=== PATIENT | male | born 1945 | race Caucasian/White ===

== ENCOUNTER 2020-08-02 15:35 | Inpatient (IN) | payer MEDICARE, OTHER, SELFPAY ==
[2020-08-02] VITALS (11 sets, daily range): BP systolic 146–194; BP diastolic 84–110; PULSE 74–79; RESP 14–18; TEMP 36.3–37.9; O2SAT 91–95; BMI 23.0
--- NOTE | 2020-08-02 15:53 | XR_ITS ---
WS: [id number] XR hip RT 2-3V wo/w pel* [id number] REASON FOR EXAM: pain FINDINGS: Bony demineralization. Degenerative changes in the right hip. Nondisplaced subcapital fracture of the junction of the femoral head and neck junction. No other bony fragments noted. XR/XR hip RT 2-3V wo/w pel* [id number] IMPRESSION: Right hip fracture as above.
--- NOTE | 2020-08-02 15:55 | W.ED.FALL ---
HPI - Fall General: Chief Complaint: Fall Stated Complaint: FALL R LEG PAIN Time Seen by Provider: 08/02/20 15:42 History of Present Illness: HPI Narrative: 74-year-old male presents to the emergency room with complaint of right hip pain. He was working on [employer] and got caught up in some tools and hoses when he went to stand up and stumbled landed on his right side. His only complaint is his right hip. Did not strike his head did not lose consciousness. He is not on any blood thinners. He does take aspirin daily. complaint: fall Onset (ago): minute(s) Fall from: standing Place fall occurred: home Loss of consciousness: None Prolonged down time: no Context: tripped/slipped Location of injury: other (Right hip) Quality: aching Associated symptoms-after fall: Denies abdominal pain, chest pain, confusion, difficulty walking, headache(s), hematuria, lightheadedness, neck pain, numbness, short of breath, vertigo or weakness Review of Systems Const: Denies: fever(s), chills, body aches, change in appetite, fatigue or malaise ENMT: Denies: throat pain, ear or mastoid pain, nasal discharge or nasal congestion Card: Denies: chest pain or lightheadedness Resp: Denies: dyspnea, productive cough or non-productive cough GI: Denies: abdominal pain : Denies: hematuria Musc: Denies: neck pain Skin/Breast: Denies: rash or pruritus Neuro: Denies: headache(s), difficulty walking, vertigo or confusion Physical Exam Const: COMMON NORMALS: no acute distress GENERAL APPEARANCE: cooperative and comfortable ORIENTATION/CONSCIOUSNESS: Yes awake, Yes oriented to person, Yes oriented to place and Yes oriented to time HENMT: COMMON NORMALS: normocephalic, atraumatic and hearing grossly normal bilaterally HEAD & SCALP: normocephalic and atraumatic Neck/C-Spine: COMMON NORMALS: no JVD Resp: COMMON NORMALS: normal respiratory effort, No retractions, No use of accessory muscles and clear to auscultation bilaterally AUSCULTATION: clear to auscultation bilaterally Cardio: COMMON NORMALS: no JVD, regular rate, regular rhythm and No murmurs present (Cardio) RATE: regular rate RHYTHM: regular rhythm GI: COMMON NORMALS: Soft to palpation and No hepatosplenomegaly present AUSCULTATION: Yes normoactive bowel sounds PALPATION: Yes Soft to palpation, No Tenderness to palpation present (GI), No Guarding due to palpation present (GI) and Yes No hepatosplenomegaly present Extremity: COMMON NORMALS: normal to inspection, capillary refill normal, no clubbing, cyanosis or edema, no calf tenderness and no pedal edema Neuro: SENSORIUM/ORIENTATION: Yes oriented to person, Yes oriented to place and Yes oriented to time Skin: COMMON NORMALS: no rashes or lesions noted GENERAL SKIN EXAM: no rashes or lesions noted Course Vital Signs: Vital signs: Vital Signs Temperature 97.3 F L 08/02/20 15:39 Pulse Rate 75 08/02/20 15:39 Respiratory Rate 18 08/02/20 16:38 Blood Pressure 192/100 08/02/20 15:39 Pulse Oximetry 95 08/02/20 15:39 MDM - Fall MDM Narrative: Medical decision making narrative: Reviewed findings with the patient. Will admit for surgery. Admit to hospitalist remainder of preoperative labs ordered talk to Dr. Gupta and Dr. Marley for consult plan is to take to the OR in the morning. Discharge Plan Discharge Patient Disposition: Admitted As Inpatient Admit Provider: Kevin Cazares Clinical Impression: Subcapital fracture of right hip Condition: Stable Coding Level of Care Code ED Pattern Weaver for Chg Fwd Exam Comprehensive
--- NOTE | 2020-08-02 16:17 | XR_ITS ---
WS: [id number] XR chest 1V portable [id number] REASON FOR EXAM: dyspnea/cough FINDINGS: The chest is unchanged compared to previous examination of 11/10/2013. Mild tortuosity the thoracic aorta without aneurysmal dilatation. Normal heart size. Calcified granulomatous changes in both hemithoraces. No active pulmonary parenchymal or pleural dise ase noted. Focal lateral eventration of the left hemidiaphragm. Mild changes of degenerative spondylosis in the mid and lower thoracic spine. XR/XR chest 1V portable [id number] IMPRESSION: No acute chest abnormality.
[2020-08-02] MEDS: morphine 4 mg/mL SDV 1 mL IVP ×2 (16:38→18:22)
[2020-08-02] MEDS: ondansetron 2 mg/ML SDV 2 mL 4 MG IVP (16:38)
--- NOTE | 2020-08-02 16:48 | ECG_ITS ---
[facility] Test Date: 2020-08-02 Pat Name: Carlo Robert Department: Room: 268 Gender: Male Cert Occupational Therapy Asst: : 1945 Requested By: Lee Biggs Order Number: [id number] Reading MD: DEBORA CABELLO Measurements Intervals [place] Rate: 82 P: 52 ID: [id number] QRS: -43 QRSD: 101 T: 51 QT: 380 QTc: 446 Interpretive Statements SINUS RHYTHM WITH OCCASIONAL SUPRAVENTRICULAR PREMATURE COMPLEXES LEFT AXIS DEVIATION [QRS AXIS < -30] No previous ECG available for comparison Electronically Signed On 08-02-2020 21:15:55 CDT by DEBORA CABELLO [id number]
[2020-08-02 16:54] LABS: Basophils % 0.6 %; Eosinophils # 0.2 10^3/uL (0.0-0.8); Eosinophils % 3.2 %; Hematocrit 49.3 % (42.0-52.0); Hemoglobin 16.3 g/dL (11.7-16.6); Lymphocytes % 13.5 %; Mean Corpuscular HGB Conc 33.1 g/dL (30.0-36.0); Mean Corpuscular Hemoglobin 28.7 pg (28.0-34.0); Mean Corpuscular Volume 86.9 fL (80-94); Mean Platelet Volume 9.4 fL (7.4-10.4); Monocytes # 0.5 10^3/uL (0.2-0.9); Monocytes % 7.2 %; Neutrophils # 5.41 10^3/uL (1.8-7.7); Neutrophils % 75.2 %; Nucleated Red Blood Cells % 0 %; Platelet Count 227 10^3/cmm (130-400); Red Blood Count 5.67 10^6/uL (4.1-5.3); Red Cell Distribution Width 13.3 % (12.1-15.1); White Blood Count 7.2 10^3/uL (4.0-10.0)
--- NOTE | 2020-08-02 17:09 | PC.CHAP ---
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 [x] Patient/Family/Request visit [] Outpatient visit [] Follow-up visit [] Physician referral [] Code/Alert [] Routine visit [] Staff referral [] Actively dying [] Patient sleeping [] Family support [] [] Out of room [] Palliative care [] [] Receiving care in room [] Pre-surgical visit [] Trauma [] Long length of stay [] ICU visit [x] Other: ER Relational/Emotional Strength [x] Patient feels connected with others/family/visitors/staff [] Distress [] Loneliness/isolation [] Abandonment Spirituality of Patient [x] Person of Keisha [x] Attends Religion of their Keisha [x] Believes in Prayer [x] Reads Bible or Christian materials [] There are Spiritual issues to be addressed Drywall Sander Interventions [x] Prayer [x] Active listening [x] Non-anxious presence [x] Spiritual/emotional support [x] Crisis/trauma care [] Spiritual counseling [] Bereavement support [] Provided bereavement packet [] Provided Bible/devotional materials [] Provided toy/stuffed animal, coloring book to patient or family member [] Provided Communion [] Anointing/[place] [] Salvation [x] Completed spiritual assessment [] Other: Impact on Illness or Injury [] Angry [] Fearful [] Anxious [] Often cries [] Exhaustion [] Unable to work [] Unable to attend religious [] Unable to walk/stand [] Unable to read [x] Unable to drive [] Unable to eat/drink [] Unable to sleep [] Unable to be with family [] Patient intubated [] Other: Summary Drywall Sander called to ED, request by patient. Patient fell and injured his hip and will have surgery tomorrow. He is calm and in no pain. Patients if also calm but a little tearful. she will not be allowed to see him until COVID test comes back. Drywall Sander will check on patient in the morning and throughout day tomorrow. Drywall Sander prayed with patient and patients , offering words of encouragement. Drywall Sander walked patients to her car. Time spent with patient 15 min
[2020-08-02 17:13] LABS: Alanine Aminotransferase 15 U/L (0-41); Albumin Level 4.8 g/dL (3.5-5.2); Alkaline Phosphatase 74 IU/L (40-130); Aspartate Amino Transferase 19 U/L (0-40); Blood Urea Nitrogen 12 mg/dL (8-23); Calcium 9.2 mg/dL (8.5-10.5); Carbon Dioxide 30 mmol/L (22-29); Chloride 98 mmol/L (98-107); Glucose 101 mg/dL (65-115); Osmolality Calculated 284 mOsm/kg (285-295); Sodium 137 mmol/L (136-145); Total Bilirubin 0.5 mg/dL (0.15-1.2); Total Protein 7.8 g/dL (6.6-8.7)
[2020-08-02 17:18] LABS: INR 1.07 (0.8-1.2); Partial Thromboplastin Time 30.1 SECONDS (23.9-36.7)
--- NOTE | 2020-08-02 17:34 | P.HP_ITS ---
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 Noted hypertensive initially, blood pressure as high as 194/110, responding to pain medication. He reports that prior to this has had no health problems, and was at baseline up until the accidental fall. Orthopedic surgeon was contacted from ER, and will be arranging for repair, possibly in the morning. Denies any symptoms of coronavirus. Review of Systems Const: Denies: fever(s), chills, body aches or malaise Eyes: Denies: change in vision or eye redness ENMT: Denies: throat pain, oral sores or ear or mastoid pain Card: Denies: chest pain, edema, pre-syncope or dyspnea on exertion Resp: Denies: dyspnea, productive cough, change in phlegm color or hemoptysis GI: Denies: abdominal pain, nausea, vomiting, diarrhea, constipation, hematochezia or melena : Denies: flank pain, difficulty urinating, urinary frequency or hematuria Musc: Denies: back pain, joint swelling or joint redness Skin/Breast: Denies: rash, sores or new lesions Neuro: Denies: headache(s), numbness in extremities, weakness in extremities, dizziness, confusion or seizure-like activity Endo: Denies: polyuria or polydipsia Marcello/Lymph: Denies: easy bleeding or purpura All/Imm: Denies: urticaria, throat swelling or tongue swelling Medications/Allergies Home Medications Medication Instructions Recorded Confirmed Last Taken Type acetaminophen [Tylenol] 325 mg PO QID PRN 08/02/20 08/02/20 Unknown History aspirin 325 - 650 mg PO Q6H PRN 08/02/20 08/02/20 Unknown History Allergies Allergy/AdvReac Type Severity Reaction Status Date / Time No Known Allergies Allergy Verified 08/02/20 15:42 PFSH Acute PFSH: Medical History (Updated 08/02/20 @ 17:38 by Kevin Cazares MD) No significant past medical history Surgical History (Updated 08/02/20 @ 17:36 by Kevin Cazares MD) History of appendectomy History of left knee replacement Family History (Updated 08/02/20 @ 17:37 by Kevin Cazares MD) Other No significant family history Social History (Updated 08/02/20 @ 17:38 by Kevin Cazares MD) Smoking and tobacco status: never smoked Alcohol intake: never Substance/Drug Use: never Household members: spouse Marital status: Current occupational status: retired Current occupation: [employer] Vitals/I&O/Wt Last Vital Signs Temp 97.3 F L 08/02/20 15:39 Pulse 75 08/02/20 17:28 Resp 18 08/02/20 17:28 BP 146/101 08/02/20 17:28 Pulse Ox 91 08/02/20 17:28 Weight last 48 hrs Weight 77.111 kg Physical Exam Const: COMMON NORMALS: no acute distress and patient oriented x3 HENMT: COMMON NORMALS: oropharynx normal Neck/C-Spine: COMMON NORMALS: no JVD Resp: COMMON NORMALS: normal respiratory effort and clear to auscultation bilaterally AUSCULTATION: clear to auscultation bilaterally Cardio: COMMON NORMALS: no JVD, regular rhythm, S1 normal heart sound present, S2 normal heart sound present and No murmurs present (Cardio) RHYTHM: regular rhythm HEART SOUNDS: S1 normal heart sound present and S2 normal heart sound present GI: COMMON NORMALS: Normal to inspection, nondistended, normoactive bowel sounds present, Soft to palpation and non-tender PALPATION: Yes Soft to palpation Extremity: COMMON NORMALS: no joint enlargement and no pedal edema OTHER: Right hip pain antalgic positioning, with pain. Neuro: COMMON NORMALS: patient oriented x3 and moves all extremities Skin: COMMON NORMALS: no rashes or lesions noted GENERAL SKIN EXAM: no rashes or lesions noted Data : 08/02/20 16:33 08/02/20 16:33 A&P Assessment and plan (1) Subcapital fracture of right hip: After mechanical fall. He has no significant past medical history. He is a never smoker. He is very active. 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 He walks unassisted, long distances, has no trouble walking on flat ground or taking stairs. He is at risk of surgery and anesthesia would be checked be average. Discussed with him. He states will be agreeable to proceed. Pending assessment by orthopedics. Tentative plan for repair possibly in the morning. EKG with sinus rhythm, PVC. Will request for NT proBNP due to age. COVID-19 PCR screening ordered. Status: Acute (2) Elevated blood pressure reading: As high as 194/110 at presentation. Responding to pain medication and suspect is pain related. He would like to hold off on initiating any treatments currently. We will monitor blood pressure. Treat pain. Reassess once he is closer to his baseline. Cardiac diet. Status: Acute Attestations Medical Necessity Statement*: Admission of over 2 midnights is going to be needed for assessment management of right hip fracture in this 74-year-old gentleman with possible undiagnosed hypertension. 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
[2020-08-02] MEDS: heparin 5,000 unit/mL INJ 1 mL 5000 UNIT SUBCUT (18:21)
[2020-08-02 18:24] LABS: NT Pro B Type Natriuretic Pept 233 pg/mL (0-450)
[2020-08-02] MEDS: morphine 4 mg/mL SDV 1 mL 2 MG IVP (20:55)
[2020-08-02 23:27] LABS: Bilirubin Urine Neg (Negative); Blood Urine 2+ (Negative); Glucose Urine UA Norm (Normal); Ketones Urine 1+ (Negative); Leukocyte Esterase Urine Negative (Negative); Nitrate Urine Negative (Negative); Protein Urine Neg (Negative); Urine Appearance Clear (CLEAR); Urine Color Yellow (Yellow); Urobilinogen Urine Norm (Negative); pH Urine 6.5 (5-7)
[2020-08-02 23:28] LABS: Add Urine Microscopic? YES; Bacteria Urine 1+ /hpf; Squamous Epithelial Cell Urine RARE /hpf (0-5); WBC Urine 0-4 /hpf (0-5)
[2020-08-02 23:29] LABS: Add Urine Culture? No
[2020-08-03] VITALS (28 sets, daily range): BP systolic 138–198; BP diastolic 72–116; PULSE 70–105; RESP 8–19; TEMP 37.3–38.3; O2SAT 88–100
--- NOTE | 2020-08-03 | XR_ITS ---
WS: [id number] XR hip RT 2-3V wo/w pel* [id number] REASON FOR EXAM: hip screws FINDINGS: Right hip nailing of subcapital fracture of the right hip. Surgical appliances and fracture fragments are in good position and alignment. XR/XR hip RT 2-3V wo/w pel* [id number] IMPRESSION: Right hip nailing as above.
--- NOTE | 2020-08-03 | SCC_ITS ---
Procedure Done: Closed reduction and percutaneous pinning right hip 101.2 seconds of fluoroscopic guidance, for a cumulative dose of 13.68 mGy, was provided to Dr. Marley by the radiology department. C-arm images of the right hip were saved for the patient's permanent record. [facility]OSPITALKeya
[2020-08-03] MEDS: D5-NS 0.45% + KCL 20 mEq 20 MEQ/1,000 ML BAG 75 MEQ IV (00:16)
[2020-08-03] MEDS: morphine 4 mg/mL SDV 1 mL IVP ×2 (00:17→04:08)
[2020-08-03 02:50] LABS: Basophils % 0.4 %; Eosinophils # 0.1 10^3/uL (0.0-0.8); Eosinophils % 1.7 %; Hematocrit 45.3 % (42.0-52.0); Hemoglobin 15.4 g/dL (11.7-16.6); Lymphocytes # 0.6 10^3/uL (0.8-4.8); Lymphocytes % 7.4 %; Mean Corpuscular Hemoglobin 29.4 pg (28.0-34.0); Mean Corpuscular Volume 86.6 fL (80-94); Mean Platelet Volume 9.3 fL (7.4-10.4); Monocytes # 0.4 10^3/uL (0.2-0.9); Monocytes % 5.1 %; Neutrophils # 6.83 10^3/uL (1.8-7.7); Neutrophils % 85.2 %; Nucleated Red Blood Cells % 0 %; Platelet Count 177 10^3/cmm (130-400); Red Blood Count 5.23 10^6/uL (4.1-5.3); Red Cell Distribution Width 13.5 % (12.1-15.1)
[2020-08-03 03:10] LABS: Anion Gap 13.8 (5-19); Blood Urea Nitrogen 15 mg/dL (8-23); Calcium 8.3 mg/dL (8.5-10.5); Carbon Dioxide 26 mmol/L (22-29); Chloride 99 mmol/L (98-107); Glucose 124 mg/dL (65-115); Osmolality Calculated 282 mOsm/kg (285-295); Potassium 3.8 mmol/L (3.5-5.1); Sodium 135 mmol/L (136-145)
[2020-08-03] MEDS: sodium chloride 0.9% 1,000 ML 30 ML IV (08:21)
--- NOTE | 2020-08-03 08:22 | PM.CONSULT ---
Providers/Reason For Consult Consulting Physican/Specialty*: Devante Marley MD Reason for Consult*: Right femoral neck fracture Attending Physician: Kevin Cazares Primary Care Provider: Raúl Briceno DO History of Present Illness History of Present Illness Carlo Robert is a 74 year old male who fell yesteray when he rapidly stood up, working on a 4 [address]. He alleges he lost his balance and denies any lightheadedness or loss of consciousness. He states he fell directly on his right hip with immediate pain. He denies any previous history of pain. He denies any other extremity discomfort Meds/Allergies Home Medications and Allergies Home Medications Medication Instructions Recorded Confirmed Last Taken Type acetaminophen [Tylenol] 325 mg PO QID PRN 08/02/20 08/02/20 Unknown History aspirin 325 - 650 mg PO Q6H PRN 08/02/20 08/02/20 Unknown History Allergies Allergy/AdvReac Type Severity Reaction Status Date / Time No Known Allergies Allergy Verified 08/02/20 15:42 Current Medications Current Medications Generic Name Dose Route Start Last Admin Trade Name Freq PRN Reason Stop Dose Admin Potassium Chloride/Dextrose/Sod Cl 20 meq in 1,000 mls @ 75 mls/hr 08/02/20 23:55 08/03/20 00:16 D5-Ns 0.45% + Kcl 20 Meq IV 75 mls/hr .[id number] SUKI Administration Sodium Chloride 1,000 mls @ 30 mls/hr 08/03/20 08:00 08/03/20 08:21 Sodium Chloride 0.9% IV 08/04/20 07:59 30 mls/hr .Q24H SUKI Administration Morphine Sulfate 4 mg 08/02/20 18:08 08/03/20 04:08 Morphine 4 Mg/Ml Sdv 1 Ml IVP 4 mg Q4H PRN Administration SEVERE PAIN PFSH Acute PFSH: Medical History (Updated 08/02/20 @ 17:38 by Kevin Cazares MD) No significant past medical history Surgical History (Updated 08/02/20 @ 17:36 by Kevin Cazares MD) History of appendectomy History of left knee replacement Family History (Updated 08/02/20 @ 17:37 by Kevin Cazares MD) Other No significant family history Social History (Updated 08/02/20 @ 17:38 by Kevin Cazares MD) Smoking and tobacco status: never smoked Alcohol intake: never Substance/Drug Use: never Household members: spouse Marital status: Current occupational status: retired Current occupation: [employer] Vitals/I&O/Wt Last Vital Signs Temp 99.5 F 08/03/20 08:21 Pulse 86 08/03/20 08:21 Resp 18 08/03/20 08:21 BP 173/92 08/03/20 08:21 Pulse Ox 93 08/03/20 08:21 08/02/20 08/03/20 08/03/20 22:59 06:59 14:59 Intake Total 120 / 120 Output Total 625 / 625 400 / 1025 Balance -625 / -625 -280 / -905 Weight last 48 hrs Weight 170 lb Physical Exam Narrative: EXAM NARRATIVE: The patient is a healthy appearing strong male who appears much younger than stated age. His right lower extremity is flexed on a pillow and slightly externally rotated. He has pain with motion of the right hip. The patient has a strong right dorsalis pedis pulse He will flex and extend his right toes and ankle He has no upper extremity or left lower extremity pain with palpation or motion Data Imaging^: Xray Ortho: My impression: Radiographs of the right hip are interpreted from our emergency room yesterday. The patient has an impacted minimally displaced fracture of the right femoral neck A&P Assessment and plan (1) Subcapital fracture of right hip: I discussed options at length with Mr. Robert. There is some slight displacement of the hip and I do feel that this would not do well with nonoperative treatment. I told him that with a significant loss of position this would be only salvageable with hip replacement in a functioning individual as himself. I think he is in good health and to be a reasonable candidate for pinning. I discussed risk unique to pinning of hip fractures including avascular necrosis nonunion and malunion. I discussed hardware that may later need to be root removed. I discussed risk of bleeding infection. Discussed unlikely anesthetic complications. I think with his high functional level with a nondisplaced fracture I would favor this as opposed to arthroplasty of the hip. He agreed to proceed. I see no obvious medical contraindications. We will proceed to surgery today. Status: Acute Coding Level of Care Code Acute Medical Office Receptionist Assistant for [facility] Fwd Diagnoses Subcapital fracture of right hip S72.011A
--- NOTE | 2020-08-03 09:19 | P.ANESASSM_ITS ---
Pre-Anesthetic Assessment Pre-Anesthetic Assessment: Height/Weight: Height 1.83 m Weight 77.111 kg Temp Pulse Resp BP Pulse Ox 99.5 F 86 18 173/92 93 08/03/20 08:21 08/03/20 08:21 08/03/20 08:21 08/03/20 08:21 08/03/20 08:21 Proposed Procedure: Operation Date: 08/03/20 15:25 Proposed Procedures p Hip Screw(Right) - Devante Marley MD Was Beta Shay taken within 24 hours: N/A Was Clonidine taken within 24 hours: N/A Last intake: Intake Last Liquid Date 08/02/20 Last Liquid Time 23:59 Last Solid Date 08/02/20 Last Solid Time 17:30 Social: Social History: No alcohol and No tobacco Exam: Pre-Anes Outpt Exam: alert, oriented x 3, clear to auscultation bilaterally and regular rate & rhythm Airway: Submandibular: WNL Cervical ROM: WNL MP: 2 Dentition: Full History/ROS: No significant history except as noted CV/HEM: CV/HEM: HTN Anesthetic Plan: ASA status: 2 Anesthesia: General Risk of > 500 ml blood loss (7ml/kg in children): No Meds/Allergies Current Medications: Current Medications Generic Name Dose Route Start Last Admin Trade Name Freq PRN Reason Stop Dose Admin Potassium Chloride /Dextrose/Sod Cl 20 meq in 1,000 m ls @ 75 mls/hr 08/02/20 23:55 08/03/20 00:16 D5-Ns 0.45% + Hans l 20 Meq IV 75 mls/hr .[id number] SUKI Administration Sodium Chloride 1,000 mls @ 30 ml s/hr 08/03/20 08:00 08/03/20 08:21 Sodium Chloride 0.9% IV 08/04/20 07:59 30 mls/hr .Q24H SUKI Administration Morphine Sulfate 4 mg 08/02/20 18:08 08/03/20 04:08 Morphine 4 Mg/Ml Sdv 1 Ml IVP 4 mg Q4H PRN Administration SEVERE PAIN PFSH Anesthesia PFSH: Medical History (Updated 08/02/20 @ 17:38 by Kevin Cazares MD) No significant past medical history Surgical History (Updated 08/02/20 @ 17:36 by Kevin Cazares MD) History of appendectomy History of left knee replacement Family History (Updated 08/02/20 @ 17:37 by Kevin Cazares MD) Other No significant family history Social History (Updated 08/02/20 @ 17:38 by Kevin Cazares MD) Smoking and tobacco status: never smoked Alcohol intake: never Substance/Drug Use: never Household members: spouse Marital status: Current occupational status: retired Current occupation: [employer] Data Anesthesia CBC & Chem 7: 08/03/20 02:30 08/03/20 02:30 Other Labs: Laboratory Results - last 48 hr 08/02/20 08/02/20 08/02/20 16:33 16:33 16:33 WBC 7.2 RBC 5.67 H Hgb 16.3 Hct 49.3 MCV 86.9 MCH 28.7 MCHC 33.1 RDW 13.3 Plt Count 227 MPV 9.4 Neut % (Auto) 75.2 Lymph % (Auto) 13.5 [place] % (Auto) 7.2 Eos % (Auto) 3.2 Baso % (Auto) 0.6 Neut # (Auto) 5.41 Lymph # (Auto) 1.0 [place] # (Auto) 0.5 Eos # (Auto) 0.2 Baso # (Auto) 0.0 Nucleated RBC % (auto) 0 Nucleated RBCs # 0.0 PT 14.20 INR 1.07 APTT 30.1 Sodium 137 Potassium 4.0 Chloride 98 Carbon Dioxide 30 H Anion Gap 13.0 BUN 12 Creatinine 0.9 GFR Calculation Not Reportable Glucose 101 Calculated Osmolality 284 L Calcium 9.2 Total Bilirubin 0.5 AST 19 ALT 15 Alkaline Phosphatase 74 NT-Pro-B Natriuret Pep Total Protein 7.8 Albumin 4.8 Globulin 3.0 Urine Color Urine Appearance Urine pH Ur Specific [place] Urine Protein Urine Glucose (UA) Urine Ketones Urine Blood Urine Nitrate Urine Bilirubin Prot Sulfosalicylic Acd Urine Urobilinogen Ur Leukocyte Esterase Urine RBC Urine WBC Ur Squamous Epith Cells Amorphous Sediment Urine Bacteria 08/02/20 08/02/20 08/02/20 16:33 23:13 23:19 WBC RBC Hgb Hct MCV MCH MCHC RDW Plt Count MPV Neut % (Auto) Lymph % (Auto) [place] % (Auto) Eos % (Auto) Baso % (Auto) Neut # (Auto) Lymph # (Auto) [place] # (Auto) Eos # (Auto) Baso # (Auto) Nucleated RBC % (auto) Nucleated RBCs # PT INR APTT Sodium Potassium Chloride Carbon Dioxide Anion Gap BUN Creatinine GFR Calculation Glucose Calculated Osmolality Calcium Total Bilirubin AST ALT Alkaline Phosphatase NT-Pro-B Natriuret Pep 233 Total Protein Albumin Globulin Urine Color Yellow Cancelled Urine Appearance Clear Cancelled Urine pH 6.5 Cancelled Ur Specific [place] 1.010 Cancelled Urine Protein Neg Cancelled Urine Glucose (UA) Norm Cancelled Urine Ketones 1+ H Cancelled Urine Blood 2+ H Cancelled Urine Nitrate Negative Cancelled Urine Bilirubin Neg Cancelled Prot Sulfosalicylic Acd Cancelled Urine Urobilinogen Norm Cancelled Ur Leukocyte Esterase Negative Cancelled Urine RBC 5-10 H Urine WBC 0-4 H Ur Squamous Epith Cells Rare Amorphous Sediment Not Reportable Urine Bacteria 1+ H 08/03/20 08/03/20 02:30 02:30 WBC 8.0 RBC 5.23 Hgb 15.4 Hct 45.3 MCV 86.6 MCH 29.4 MCHC 34.0 RDW 13.5 Plt Count 177 MPV 9.3 Neut % (Auto) 85.2 Lymph % (Auto) 7.4 [place] % (Auto) 5.1 Eos % (Auto) 1.7 Baso % (Auto) 0.4 Neut # (Auto) 6.83 Lymph # (Auto) 0.6 L [place] # (Auto) 0.4 Eos # (Auto) 0.1 Baso # (Auto) 0.0 Nucleated RBC % (auto) 0 Nucleated RBCs # 0.0 PT INR APTT Sodium 135 L Potassium 3.8 Chloride 99 Carbon Dioxide 26 Anion Gap 13.8 BUN 15 Creatinine 1.0 GFR Calculation Not Reportable Glucose 124 H Calculated Osmolality 282 L Calcium 8.3 L Total Bilirubin AST ALT Alkaline Phosphatase NT-Pro-B Natriuret Pep Total Protein Albumin Globulin Urine Color Urine Appearance Urine pH Ur Specific [place] Urine Protein Urine Glucose (UA) Urine Ketones Urine Blood Urine Nitrate Urine Bilirubin Prot Sulfosalicylic Acd Urine Urobilinogen Ur Leukocyte Esterase Urine RBC Urine WBC Ur Squamous Epith Cells Amorphous Sediment Urine Bacteria Cardiac Studies: No Data to Display
--- NOTE | 2020-08-03 09:25 | PM.OP ---
Operative Report Date of procedure: August 03, 2020 Pre-op Diagnosis: Minimally displaced right femoral neck fracture Post-op diagnosis: same Post-op Findings: Same Procedure Done: Closed reduction and percutaneous pinning right hip Implants: ASNIS 8.0mm screws Anesthesia: MAC Estimated blood loss (mL): 20 Findings: The patient had a minimally displaced fracture of the femoral neck with slight posterior angulation which was easily correctable with traction and internal rotation Condition: stable Disposition: PACU Procedure: The patient was positioned on the fracture table with his right leg in traction. They were given 2 g of Ancef. A timeout was performed. A small lateral stab wound was made just below the level of the greater trochanter with a scalpel blade. Under visit so fluoroscopy initial guide pin was driven from a central position just above the level of lesser trochanter into inferior neck and inferior head. Over this was passed an 8.0 mm Anurag Asnis screw. A second pin was placed in the superior anterior position and a second screw placed. A third pin was placed in a posterior superior position and a third screw placed. Intraoperative fluoroscopy was used to verify hardware position. The wound was irrigated with saline. Deep tissues were closed with 3-0 Vicryl. A sterile dressing was applied. The patient was taken to PACU unit in stable condition.
[2020-08-03] MEDS: labetalol 5 mg/mL SDV 20mL 10 MG IVP (09:34)
[2020-08-03] MEDS: HYDROmorphone 1 mg/mL INJ 1 mL 0.5 MG IVP ×2 (09:52→10:02)
--- NOTE | 2020-08-03 10:07 | SUR.PHASEI ---
0930 PT HAS SENSATION/MOVEMENT TO R. FOOT, PEDAL PULSE PALPATED, CAP REFILL <3 SEC
--- NOTE | 2020-08-03 10:34 | PC.CHAP ---
Pastoral Care Encounter/Spiritual Assessment Type of Contact [] Declined groundskeeping maintenance worker visit [] Patient/Family/Request visit [] Outpatient visit [x] Follow-up visit [] Physician referral [] Code/Alert [] Routine visit [] Staff referral [] Actively dying [] Patient sleeping [] Family support [] [] Out of room [] Palliative care [] [] Receiving care in room [] Pre-surgical visit [] Trauma [] Long length of stay [] ICU visit [x] Other: in surgery Relational/Emotional Strength [] Patient feels connected with others/family/visitors/staff [] Distress [] Loneliness/isolation [] Abandonment Spirituality of Patient [] Person of Keisha [] Attends Mosque of their Keisha [] Believes in Prayer [] Reads Bible or Zoroastrian materials [] There are Spiritual issues to be addressed Start Up Specialist Interventions [] Prayer [] Active listening [] Non-anxious presence [] Spiritual/emotional support [] Crisis/trauma care [] Spiritual counseling [] Bereavement support [] Provided bereavement packet [] Provided Bible/devotional materials [] Provided toy/stuffed animal, coloring book to patient or family member [] Provided Communion [] Anointing/[place] [] Salvation [] Completed spiritual assessment [] Other: Impact on Illness or Injury [] Angry [] Fearful [] Anxious [] Often cries [] Exhaustion [] Unable to work [] Unable to attend gnosticism [] Unable to walk/stand [] Unable to read [] Unable to drive [] Unable to eat/drink [] Unable to sleep [] Unable to be with family [] Patient intubated [] Other: Summary in surgery Time spent with patient 5 mins
--- NOTE | 2020-08-03 10:41 | PC.CHAP ---
Pastoral Care Encounter/Spiritual Assessment Type of Contact [] Declined facility maintenance mechanic visit [] Patient/Family/Request visit [] Outpatient visit [X] Follow-up visit [] Physician referral [] Code/Alert [] Routine visit [] Staff referral [] Actively dying [] Patient sleeping [] Family support [] [] Out of room [] Palliative care [] [] Receiving care in room [] Pre-surgical visit [] Trauma [] Long length of stay [] ICU visit [x] Other: in surgery Relational/Emotional Strength [] Patient feels connected with others/family/visitors/staff [] Distress [] Loneliness/isolation [] Abandonment Spirituality of Patient [] Person of Keisha [] Attends Congregational of their Keisha [] Believes in Prayer [] Reads Bible or Christian materials [] There are Spiritual issues to be addressed Patient Care Specialist Interventions [] Prayer [] Active listening [] Non-anxious presence [] Spiritual/emotional support [] Crisis/trauma care [] Spiritual counseling [] Bereavement support [] Provided bereavement packet [] Provided Bible/devotional materials [] Provided toy/stuffed animal, coloring book to patient or family member [] Provided Communion [] Anointing/[place] [] Salvation [] Completed spiritual assessment [] Other: Impact on Illness or Injury [] Angry [] Fearful [] Anxious [] Often cries [] Exhaustion [] Unable to work [] Unable to attend tenriism [] Unable to walk/stand [] Unable to read [] Unable to drive [] Unable to eat/drink [] Unable to sleep [] Unable to be with family [] Patient intubated [] Other: Summary in surgery Time spent with patient 5 mins
[2020-08-03] MEDS: sodium chloride 0.9% 1,000 ML 80 ML IV (11:20)
--- NOTE | 2020-08-03 11:59 | USCV_ITS ---
Carlo Robert Age: 74 Gender: M : 1945 Exam Date: 08/03/2020 14:33 Ordering Phys: Kevin Cazares MD Technologist: Justino Hamm Exam Location: [facility] [place] Indication: BED STASIS HISTORY: Lower extremity edema. PROCEDURES: The venous duplex Doppler examination of both lower extremities was performed in the standard fashion. The following venous structures were evaluated: common femoral vein, profunda vein, proximal portion of the greater saphenous vein, superficial femoral vein, and the popliteal vein. In addition, the posterior tibial and peroneal trunk were evaluated. Bilaterally, the common femoral, superficial femoral, profunda femoral, popliteal, posterior tibial, greater saphenous veins, and the peroneal trunk were identified and interrogated in the standard fashion. These veins were found to be easily compressible with spontaneous blood flow. No evidence of insufficiency or thrombus noted. FINDINGS: Normal 2-D Doppler and augmentation and compressibility throughout the lower extremity venous structures. Additional imaging through the proximal calf veins also reveals no thrombus. Limited evaluation of the greater saphenous vein is patent with no thrombus.. CONCLUSIONS No evidence of right lower extremity DVT. No evidence of left lower extremity DVT. Dev Arroyo MD (Electronically Signed) Final Date: 04 August 2020 08:45 S
--- NOTE | 2020-08-03 12:17 | PM.PN ---
Subjective Subjective: Interval history: He is surrounded by family today, he states he is doing very well. He is very hungry as he says has not eaten anything since yesterday morning. He denies any headache, dizziness, vision changes, any sore throat, sneezing, coughing, shortness of breath, chest pain or pressure, nausea vomiting or diarrhea, denies any rash, unexplained pain. He states he truly is doing well. Discussed with him his family regarding unexplained low-grade fever episodes. We are so far having trouble identifying any discernible source of infection. He is agreeable for additional assessment by blood culture, however, states that most likely the fever is due to stress. His states that he has been known in the past to have low-grade fevers during stressful episodes which resolved spontaneously, and without any infection to cause it. Discussed with him we are also obtaining lower extremity duplex study to assess for VTE of which he may be at risk due to hip fracture. Vitals/I&O/Wt Last Vital Signs Temp 99.3 F 08/03/20 12:00 Pulse 92 08/03/20 12:00 Resp 19 H 08/03/20 12:00 BP 165/94 08/03/20 12:00 Pulse Ox 92 08/03/20 12:00 08/02/20 08/03/20 08/03/20 22:59 06:59 14:59 Intake Total 120 / 120 50 / 50 Output Total 625 / 625 400 / 1025 Balance -625 / -625 -280 / -905 40 / 40 Weight last 48 hrs Weight 77.111 kg Physical Exam Const: COMMON NORMALS: no acute distress and patient oriented x3 HENMT: COMMON NORMALS: oropharynx normal Neck/C-Spine: COMMON NORMALS: no JVD Resp: COMMON NORMALS: normal respiratory effort and clear to auscultation bilaterally AUSCULTATION: clear to auscultation bilaterally Cardio: COMMON NORMALS: no JVD, regular rhythm, S1 normal heart sound present, S2 normal heart sound present and No murmurs present (Cardio) RHYTHM: regular rhythm HEART SOUNDS: S1 normal heart sound present and S2 normal heart sound present GI: COMMON NORMALS: Normal to inspection, nondistended, normoactive bowel sounds present, Soft to palpation and non-tender PALPATION: Yes Soft to palpation Extremity: COMMON NORMALS: no joint enlargement and no pedal edema OTHER: Right hip pain antalgic positioning, with pain. Neuro: COMMON NORMALS: patient oriented x3 and moves all extremities Skin: COMMON NORMALS: no rashes or lesions noted GENERAL SKIN EXAM: no rashes or lesions noted Data : 08/03/20 02:30 08/03/20 02:30 A&P Assessment and plan (1) Fever: No clear infection related cause so far. BC requested. UA not suggestive of UA, with a few bacteria, microscopic hematuria. Will request to add culture. COVID PCR pending, although denies any suggestive symptoms. Will assess lower extremity duplex for VTE. He and his family state that he gets low-grade fever sometimes due to stressful episodes. If we are not finding other cause, perhaps this may be the reason. Status: Acute (2) Subcapital fracture of right hip: Status post closed reduction and percutaneous pinning after right hip. Doing well postoperatively. He is awake and alert, eating and drinking, so we will discontinue IV fluid. Monitor blood pressures, hemoglobin. Started on 325 mg aspirin. Mobilize with therapy. Given his baseline he is good expect he should mobilize very well. Status: Acute (3) Elevated blood pressure reading: Blood pressure is better today. Appears to be improving with pain. He would like to monitor for now until he is closer to his baseline before reassessment of possible hypertension. Cardiac diet. Status: Acute Attestations Medical Necessity Statement*: Continue admission for assessment management following right hip fracture and repair, fever. Coding Level of Care Code Acute Window Systems Administrator for Alysia Olmedo Diagnoses Fever R50.9 Subcapital fracture of right hip S72.011A Elevated blood pressure reading R03.0
[2020-08-03] MEDS: morphine 4 mg/mL SDV 1 mL 2 MG IVP (12:49)
[2020-08-03 14:09] LABS: Coronavirus Test Green County Not Detected
--- NOTE | 2020-08-03 15:24 | ANE.PACU2 ---
Inpatient post-anesthesia follow up: Airway intact: Yes Vital signs: Temperature 99.1 F Pulse Rate [Left R adial] 75 Pulse Rate 89 Respiratory Rate 18 Blood Pressure [Le ft Arm] 192/100 Blood Pressure 150/72 Pulse Oximetry 91 Oxygen Delivery Me thod [ Room Air Current Rate & Del barbara] Oxygen Delivery Me thod [Rate & Nasal Cannula Delivery Changed T o] Oxygen Delivery Me thod Room Air Oxygen Flow Rate [ Rate & 2 Delivery Changed T o] Oxygen Flow Rate 2 Fraction of Inspir ed Oxygen Hydration adequate: Yes Nausea and vomiting: No Pain level: 2 Mental status: Baseline
[2020-08-03] MEDS: oxyCODONE 5 mg IR Tab/Cap PO ×2 (15:33→23:37)
[2020-08-03 19:59] LABS: Lactic Sepsis W/Reflex 1.3 mmol/L (0.5-2.2)
[2020-08-03] MEDS: ondansetron 4 MG Tablet PO (23:38)
[2020-08-04] VITALS (9 sets, daily range): BP systolic 157–183; BP diastolic 80–94; PULSE 78–88; RESP 17–19; TEMP 37–38; O2SAT 90–95
[2020-08-04 02:20] LABS: Basophils % 0.4 %; Eosinophils # 0.1 10^3/uL (0.0-0.8); Eosinophils % 0.8 %; Hematocrit 42.9 % (42.0-52.0); Hemoglobin 14.5 g/dL (11.7-16.6); Lymphocytes # 0.6 10^3/uL (0.8-4.8); Lymphocytes % 6.1 %; Mean Corpuscular HGB Conc 33.8 g/dL (30.0-36.0); Mean Corpuscular Hemoglobin 29.3 pg (28.0-34.0); Mean Corpuscular Volume 86.7 fL (80-94); Mean Platelet Volume 8.9 fL (7.4-10.4); Monocytes # 0.8 10^3/uL (0.2-0.9); Monocytes % 7.5 %; Neutrophils # 8.46 10^3/uL (1.8-7.7); Neutrophils % 84.8 %; Nucleated Red Blood Cells % 0 %; Platelet Count 147 10^3/cmm (130-400); Red Blood Count 4.95 10^6/uL (4.1-5.3); Red Cell Distribution Width 13.5 % (12.1-15.1)
[2020-08-04 02:45] LABS: Alanine Aminotransferase 11 U/L (0-41); Albumin Level 3.7 g/dL (3.5-5.2); Alkaline Phosphatase 48 IU/L (40-130); Aspartate Amino Transferase 23 U/L (0-40); Blood Urea Nitrogen 16 mg/dL (8-23); Calcium 8.3 mg/dL (8.5-10.5); Carbon Dioxide 24 mmol/L (22-29); Chloride 98 mmol/L (98-107); Globulin 2.6 g/dL (1.3-4.6); Glucose 130 mg/dL (65-115); Osmolality Calculated 277 mOsm/kg (285-295); Sodium 132 mmol/L (136-145); Total Protein 6.3 g/dL (6.6-8.7)
[2020-08-04] MEDS: ondansetron 4 MG Tablet PO (07:14)
--- NOTE | 2020-08-04 08:00 | CT_ITS ---
WS: [id number] CT ABDOMEN PELVIS TECHNIQUE: Noncontrast CT of the abdomen and pelvis with coronal and sagittal reformatted images. CLINICAL INFORMATION: microscopic hematuria, fever COMPARISON: None. DLP: 1016.[address] scans at [facility] use at least one of these dose optimization techniques: automat ed exposure control; mA and/or kV adjustment per patient size (includes targeted exams where dose is matched to clinical indication); or iterative reconstruction. FINDINGS: Trace bilateral pleural fluid. Subsegmental atelectasis in the lung bases. Calcified granuloma right upper lobe. Normal noncontrast liver and gallbladder. Distended stomach with food products in the air -fluid levels. Normal GE junction. Noncontrast spleen is normal. Adrenal glands are normal. Bilateral renal cortical atrophy. Left renal cyst measuring 1.8 cm. No obstructing renal or ureteral calculi. Fatty atrophy of the pancreas. Normal caliber abdominal aorta. No abdominal or pelvic lymphadenopathy . Sigmoid diverticulosis. No evidence of acute diverticulitis. No evidence of high-grade small or large bowel obstruction. Tiny fat-containing umbilical hernia. Prostate calcification. Prostate measures 5.1 CM. Screw fixation right hip. CT/CT kidney stone [id number] IMPRESSION: 1. No hydronephrosis in either kidney. No obstructing renal or ureteral calcul i. 2. Left renal cyst measuring 1.8 cm. 3. Urine distended bladder appears unremarkable. 4. Enlarged prostate measuring 5.0 CM. Recommend correlation PSA. 5. Sigmoid diverticulosis. No evidence of acute diverticulitis. 6. Subsegmental atelectasis in the lung bases.
[2020-08-04] MEDS: aspirin 325 mg EC Tablet PO (08:39)
[2020-08-04] MEDS: oxyCODONE 5 mg IR Tab/Cap PO ×2 (08:39→21:35)
--- NOTE | 2020-08-04 10:10 | PC.OT ---
OT EVALUATION ATTEMPTED THIS A.M. PATIENT STATES THAT HE DOES NOT FEEL WELL AND IS IN 7/10 PAIN RIGHT HIP. REPORTS HAD A CT SCAN THIS A.M. AND IS SORE FROM THAT MOVEMENT. WILL ATTEMPT OT EVAL AGAIN AT A LATER TIME.
[2020-08-04] MEDS: morphine 4 mg/mL SDV 1 mL 2 MG IVP (10:17)
--- NOTE | 2020-08-04 14:58 | PC.NURSE ---
using the urinal.
--- NOTE | 2020-08-04 19:54 | XRR_ITS ---
PROCEDURE INFORMATION: Exam: XR Right Knee Exam date and time: 08/04/2020 8:09 PM Age: 74 years old Clinical indication: Pain; Knee; Right; Additional info: Pain, swelling after fall TECHNIQUE: Imaging protocol: XR Right knee. Views: 3 views. COMPARISON: No relevant prior studies available. FINDINGS: There is narrowing of the medial compartment. The lateral compartment is well maintained. There is chondrocalcinosis. Intra-articular bodies are present. There is sclerosis involving the proximal tibia which may be due to bone infarct. There are degenerative changes of the patellofemoral joint. There is a joint effusion. No fracture is identified. Vascular calcifications are noted. XR/XR knee RT 3V* [id number] IMPRESSION: 1. Osteoarthritis. 2. Joint effusion. 3. No acute fracture.
--- NOTE | 2020-08-04 21:36 | PC.NURSE ---
This nurse spoke with the patient about the importance of imagining of the knee, patient refused knee CT.
--- NOTE | 2020-08-04 22:13 | PM.PN ---
Subjective Subjective: Interval history: States he is doing all right. Denies any headache, dizziness, nausea or vomiting. Does have a bit of nasal congestion. Denies sneezing, coughing, denies chest pain or pressure. Denies muscle aches or chills. Denies abdominal pain or diarrhea. Denies dysuria or perineal fullness or pain. Denies any rash. Mobilize today, walking around with physical therapy and by himself. Having pain in the right leg. On examination appears a lot of this pain is in his right knee. Vitals/I&O/Wt Last Vital Signs Temp 100.4 F H 08/04/20 20:00 Pulse 78 08/04/20 20:00 Resp 19 H 08/04/20 21:35 BP 172/82 08/04/20 20:00 Pulse Ox 95 08/04/20 20:00 08/04/20 08/04/20 08/04/20 06:59 14:59 22:59 Intake Total 360 / 360 240 / 600 Output Total 975 / 985 700 / 700 1075 / 1775 Balance -975 / 3185 -340 / -340 -835 / -1175 Physical Exam Const: COMMON NORMALS: no acute distress and patient oriented x3 HENMT: COMMON NORMALS: oropharynx normal Neck/C-Spine: COMMON NORMALS: no JVD Resp: COMMON NORMALS: normal respiratory effort and clear to auscultation bilaterally AUSCULTATION: clear to auscultation bilaterally Cardio: COMMON NORMALS: no JVD, regular rhythm, S1 normal heart sound present, S2 normal heart sound present and No murmurs present (Cardio) RHYTHM: regular rhythm HEART SOUNDS: S1 normal heart sound present and S2 normal heart sound present GI: COMMON NORMALS: Normal to inspection, nondistended, normoactive bowel sounds present, Soft to palpation and non-tender PALPATION: Yes Soft to palpation Extremity: COMMON NORMALS: no joint enlargement and no pedal edema OTHER: Right thigh/hip looks good. Right knee swollen, tender to palpation, painful on passive range of motion. Mild pinkish discoloration of the thigh and hip. No erythema suggest cellulitis. Neuro: COMMON NORMALS: patient oriented x3 and moves all extremities Skin: COMMON NORMALS: no rashes or lesions noted GENERAL SKIN EXAM: no rashes or lesions noted Data : 08/04/20 02:13 08/04/20 02:13 Micro: Microbiology 08/03/20 19:17 Blood Culture - Preliminary Blood NEGATIVE TO DATE 08/03/20 19:17 Blood Culture - Preliminary Blood NEGATIVE TO DATE 08/03/20 13:00 Blood Culture - Preliminary Blood NEGATIVE TO DATE 08/03/20 13:03 Blood Culture - Preliminary Blood NEGATIVE TO DATE A&P Assessment and plan (1) Fever: Discussed with him we are not finding a source of sepsis. There is microscopic hematuria due to which we assess CT abdomen pelvis to exclude kidney infection, or other infection. Does appear to have enlarged prostate. Discussed with him. Denies any symptoms that may suggest prostatitis. Urine culture was requested. Noted renal cyst. No other suggestive source of infection. Does have some atelectasis and lung bases. Will request I-S. Follow-up blood culture, urine culture. Discussed with him possibility of VT causing fever, although lower extremity duplex without suggestion of DVT. Right hip looks good, however, on examination right knee is quite tender to palpation, painful to passive range of motion. Swollen. Both sides warm, and difficult to say whether right side may be harder. It appears she did not notice the degree of pain in his right knee until we examined it. Discussed with him possible etiologies of the pain. He states he may have injured it while falling, or could be due to immobilization during surgery. With fever, discussed with him keeping also possibility of infection, although less probable. Will discuss with orthopedics. We are requesting additional assessment by x-ray, CT scan. I am told he refused CT scan. Negative COVID-19 PCR. Status: Acute (2) Elevated blood pressure reading: Monitor blood pressures. Treat pain. Starting Flomax. Cardiac diet. Status: Acute (3) BPH (benign prostatic hyperplasia): Flomax. No symptoms of prostatitis. Status: Acute (4) Subcapital fracture of right hip: Status post closed reduction and percutaneous pinning after right hip. Doing well postoperatively. He is awake and alert, eating and drinking, so we will discontinue IV fluid. Doing well. Mobilize. Started on 325 mg aspirin. Given his baseline he is good expect he should mobilize very well. Status: Acute Attestations Medical Necessity Statement*: Continue admission for assessment management of unexplained recurrent fevers. Coding Level of Care Code Acute Electromechanical Engineer for Alysia Olmedo Diagnoses Fever R50.9 Elevated blood pressure reading R03.0 BPH (benign prostatic hyperplasia) N40.0 Subcapital fracture of right hip S72.011A
[2020-08-05] VITALS: BP 159/80; PULSE 83; RESP 20; TEMP 38.1; O2SAT 96
[2020-08-05 04:00] VITALS: BP 161/78; PULSE 80; RESP 20; TEMP 37.3; O2SAT 94
[2020-08-05 06:57] LABS: Basophils % 0.4 %; Eosinophils # 0.2 10^3/uL (0.0-0.8); Eosinophils % 2.6 %; Hematocrit 44.1 % (42.0-52.0); Hemoglobin 14.7 g/dL (11.7-16.6); Lymphocytes # 0.6 10^3/uL (0.8-4.8); Lymphocytes % 6.6 %; Mean Corpuscular HGB Conc 33.3 g/dL (30.0-36.0); Mean Corpuscular Hemoglobin 29.1 pg (28.0-34.0); Mean Corpuscular Volume 87.2 fL (80-94); Monocytes # 0.7 10^3/uL (0.2-0.9); Monocytes % 7.9 %; Neutrophils # 6.98 10^3/uL (1.8-7.7); Neutrophils % 82.3 %; Nucleated Red Blood Cells % 0 %; Platelet Count 151 10^3/cmm (130-400); Red Blood Count 5.06 10^6/uL (4.1-5.3); Red Cell Distribution Width 13.4 % (12.1-15.1); White Blood Count 8.5 10^3/uL (4.0-10.0)
[2020-08-05 07:12] LABS: Alanine Aminotransferase 12 U/L (0-41); Albumin Level 3.5 g/dL (3.5-5.2); Alkaline Phosphatase 55 IU/L (40-130); Anion Gap 11.9 (5-19); Aspartate Amino Transferase 23 U/L (0-40); Blood Urea Nitrogen 15 mg/dL (8-23); Calcium 8.1 mg/dL (8.5-10.5); Carbon Dioxide 26 mmol/L (22-29); Chloride 96 mmol/L (98-107); Globulin 3.2 g/dL (1.3-4.6); Glucose 116 mg/dL (65-115); Osmolality Calculated 272 mOsm/kg (285-295); Potassium 3.9 mmol/L (3.5-5.1); Sodium 130 mmol/L (136-145); Total Bilirubin 0.8 mg/dL (0.15-1.2); Total Protein 6.7 g/dL (6.6-8.7); Uric Acid 3.4 mg/dL (3.4-7.0)
[2020-08-05 08:00] VITALS: BP 154/87; PULSE 87; RESP 18; TEMP 37.1; O2SAT 95
[2020-08-05] MEDS: aspirin 325 mg EC Tablet PO (08:36)
[2020-08-05 11:43] VITALS: BP 151/69; PULSE 92; RESP 18; TEMP 37.2; O2SAT 96
--- NOTE | 2020-08-05 13:06 | DCPLANNER ---
Page 2 IMM Explained to patient page 2 IMM, no questions at this time. Provided patient a copy signed, dated and time a copy in patients chart.
--- NOTE | 2020-08-05 13:15 | PM.CONSULT ---
Providers/Reason For Consult Consulting Physican/Specialty*: Dr. Daria Gant Reason for Consult*: Right Knee pain and swelling Requesting Physcian: Dr. Kevin Cazares Attending Physician: Kevin Cazares Primary Care Provider: Raúl Briceno DO History of Present Illness History of Present Illness Carlo Robert is a 74 year old male who presented to the hospital on August 02 after a fall at home. The patient tells me that he got his feet tangled up in an air hose after working on a [employer]. He denied any other reason for his fall. He fell onto the right side and had immediate pain in the right hip. He was brought to the emergency department and was found to have an impacted minimally displaced fracture of the right femoral neck. This was addressed by Dr. Marley. The patient had his surgery on the morning of August 03. He underwent a closed reduction and percutaneous pinning of the right hip. He has done well following this, but he has begun to complain of significant right knee pain. There is also swelling in the knee. On the evening of August 04, I was called by the hospitalist team Dr. Cazares, and was requested to evaluate the patient's knee as this was a new problem and was problematic for him. Therefore, the patient is evaluated today for right knee pain and swelling. Review of Systems Const: Denies: fever(s), chills, body aches, change in appetite, fatigue or malaise Eyes: Denies: change in vision or eye redness ENMT: Denies: throat pain, oral sores, ear or mastoid pain, nasal discharge or nasal congestion Card: Denies: chest pain, edema, lightheadedness, pre-syncope or dyspnea on exertion Resp: Denies: dyspnea, productive cough, non-productive cough, change in phlegm color or hemoptysis GI: Denies: abdominal pain, nausea, vomiting, diarrhea, constipation, hematochezia or melena : Denies: flank pain, difficulty urinating, urinary frequency or hematuria Musc: Denies: neck pain, back pain, joint swelling or joint redness Skin/Breast: Denies: rash, pruritus, sores or new lesions Neuro: Denies: headache(s), numbness in extremities, weakness in extremities, difficulty walking, dizziness, vertigo, confusion or seizure-like activity Endo: Denies: polyuria or polydipsia Marcello/Lymph: Denies: easy bleeding or purpura All/Imm: Denies: urticaria, throat swelling or tongue swelling Meds/Allergies Home Medications and Allergies Home Medications Medication Instructions Recorded Confirmed Last Taken Type Tylenol 325 mg PO QID PRN 08/02/20 08/02/20 Unknown History aspirin 325 - 650 mg PO Q6H PRN 08/02/20 08/02/20 Unknown History oxycodone 5 mg PO Q4H PRN 7 Days #30 tab 08/03/20 Unknown Rx aspirin 325 mg PO DAILY #10 tab 08/05/20 Unknown Rx tamsulosin 0.4 mg PO BEDTIME #30 cap 08/05/20 Unknown Rx Allergies Allergy/AdvReac Type Severity Reaction Status Date / Time No Known Allergies Allergy Verified 08/02/20 15:42 PFSH Acute PFSH: Medical History No significant past medical history Surgical History History of appendectomy History of left knee replacement Family History Other No significant family history Social History Smoking and tobacco status: never smoked Alcohol intake: never Household members: spouse Marital status: Current occupational status: retired Current occupation: [employer] Vitals/I&O/Wt Last Vital Signs Temp 99.0 F 08/05/20 14:31 Pulse 92 08/05/20 14:31 Resp 18 08/05/20 14:31 BP 151/69 08/05/20 14:31 Pulse Ox 96 08/05/20 14:31 08/05/20 08/05/20 08/05/20 06:59 14:59 22:59 Intake Total 120 / 120 Output Total 0 / 1775 300 / 300 Balance 0 / -1175 -180 / -180 Physical Exam Const: COMMON NORMALS: no acute distress, average body habitus, patient oriented x3 and alert GENERAL APPEARANCE: cooperative and comfortable ORIENTATION/CONSCIOUSNESS: Yes awake HENMT: COMMON NORMALS: normocephalic and atraumatic HEAD & SCALP: normocephalic and atraumatic Eye: GENERAL EYE: appearance normal, both eyes and all related structures Chest: COMMONS NORMALS: normal inspection of the chest Resp: COMMON NORMALS: normal respiratory effort EFFORT & INSPECTION: Yes able to speak in complete sentences and Yes symmetric chest movement Extremity: RIGHT LOWER EXTREMITY: Yes hip joint (Hip has a small dressing consistent with percutaneous pinning.) Right hip: Yes palpation (Minimal to no tenderness about the hip.) and Yes neurovascular exam (Intact distally.) and Yes knee joint (There is a varus deformity of the right knee) Right knee: Yes inspection (There is a knee effusion.), Yes palpation (The knee is painful to palpation along the medial joint line), Yes ROM (Lacking full extension with 100 degrees of flexion) and Yes neurovascular exam (Intact distally) Neuro: COMMON NORMALS: patient oriented x3 SENSORIUM/ORIENTATION: Yes alert Psych: COMMON NORMALS: mental status grossly normal APPEARANCE: Yes grossly normal ATTITUDE: Yes calm and Yes engaged ATTENTION/CONCENTRATION: Yes attention grossly intact Skin: COMMON NORMALS: no rashes or lesions noted GENERAL SKIN EXAM: no rashes or lesions noted Data Micro: Micro: Microbiology 08/03/20 19:13 Urine Culture - Pr eliminary Urine,Voided 08/03/20 19:17 Blood Culture - Pr eliminary Blood NEGATIVE TO WAI E 08/03/20 19:17 Blood Culture - Pr eliminary Blood NEGATIVE TO WAI E Imaging^: Xray Ortho: I personally reviewed and interpreted this imaging study as follows: My impression: Right knee images are obtained on the evening of August 04. The images demonstrate there is irregularity of the medial compartment. There is also chondrocalcinosis visualized. There is no evidence of acute fracture or dislocation. The lateral demonstrates osteophyte formation inferiorly and superiorly on the patella and posteriorly on the posterior femoral condyles. There are osteophytes medially and laterally along the femoral condyles as well. A&P Assessment and plan (1) Primary osteoarthritis of right knee: Patient is status post subcapital hip fracture treated by Dr. Marley. Additionally, he had increased pain in his right knee for which I was asked to evaluate him. Patient states that he has knee pain off and on in general. Occasionally, he has an effusion. He has more pain and a larger effusion, however, the normal for him. He notes that he is ready to go home. He wants to go home. He is not interested in further treatment for his knee. He is offered an aspiration and possible cortisone injection, but he is not interested in that at this time. Risks and benefits are discussed. I have advised the patient that he can be seen as an outpatient for this issue. Status: Acute (2) Effusion of right knee: Status: Acute Consult Attestations Medical Necessity Statement: Per hospitalist team. 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
--- NOTE | 2020-08-05 13:45 | P.DS_ITS ---
Discharge Providers Date of Admission: 08/02/20 16:32 Date of Discharge: August 05, 2020 Attending Provider at Admission: Kevin Cazares Attending Provider at Discharge: Kevin Cazares Primary Care Provider: Raúl Briceno DO Diagnoses at Discharge Discharge Diagnosis (1) Fever: Status: Acute (2) Elevated blood pressure reading: Status: Acute (3) BPH (benign prostatic hyperplasia): Status: Acute (4) Subcapital fracture of right hip: Status: Acute Reason for Visit Reason for Visit: FALL R LEG PAIN Hospital Course Hospital Course Very pleasant 74-year-old gentleman without much significant past medical history, was admitted for assessment management of right hip pain after an accidental trip and fall while fixing his motorbike, with finding of mildly displaced subcapital fracture of junction of right femoral head and neck. Arrangements were made for surgical repair. Preoperatively he spiked low-grade temperature 100-100.3. On review of systems he was at baseline state of health recently, without any new symptoms to suggest acute ongoing infection. His blood pressure was elevated on presentation, although was responding to pain medications. Urinalysis and urine culture were collected, and was noted microscopic hematuria, but not suggestive of UTI, and with preliminary urine culture negative so far. Blood cultures were obtained, and also repeated, so far preliminary cultures without growth. Final cultures will need to be followed up. Chest imaging not suggestive of pneumonia. He denied any INTEGRATED SPECIALIST s ymptoms. And otherwise has not had any GI, urinary, or other symptoms that may suggest acute infection. Did have some mild nasal congestion he reported which he relates to seasonal allergies. Denies other respiratory complaints. Also reported small bite on his lower lip which is slightly bothersome which occurred during the fall. This does not appear to be surrounded by any erythema or swelling. No drainage. Denies any other dental problems. Denies trouble swallowing or pain. He underwent uneventful closed reduction and percutaneous pinning of the right hip on 08/03. Low-grade fevers again noted in the morning, in the afternoon and evening of 08/03. Then remained afebrile through most of the day 08/04, with last fever noted at midnight last night 100.5 Fahrenheit. He underwent additional assessment with lower extremity duplex which did not show DVT. CT abdomen pelvis performed due to microscopic hematuria to exclude kidney infection showed no hydronephrosis. Left renal cyst 1.8 cm. Noted distended urine bladder but otherwise unremarkable, with enlarged prostate measuring 5 cm. Follow-up with PSA is recommended. On detailed discussion of this finding he denied any symptoms of UTI or which may suggest prostatitis. He is not started on any antibiotic therapy at this time. On additional reevaluation on 08/04 noted that he is right lower extremity pain was not related only to the hip, but also with pain tenderness, swelling of the right knee. This was imaged with x-ray, and CT was requested, although he declined the CT scan. X-ray showed joint effusion. This was discussed with orthopedic surgery who came and evaluated him, offering additional evaluation by arthrocentesis, to exclude additional inflammatory or infectious causes, however, he declined. He understands the risks. He prefers to discharge home without any delays, and was ready to leave AGAINST MEDICAL ADVICE. On discussion with him he prefers to give the knee some time and monitor. He states that the pain in the knee is better. The swelling is mildly improved. There is no erythema or warmth compared to the other side. He understands to be cautious, in case of any worsening symptoms, recurrent fevers, high fevers, or other concerns to seek medical attention immediately. Understands he may be at risk, although small that there may be a unidentified focus of infection which may return causing sepsis, severe infection, disability or in case not identified or treated in time. The pain in the right knee may be due to fall, as well as fixation of the right lower extremity during surgery, and low grade fevers may be as he relates them to acute stress (it appears this had occurred with him in the past from what he and his state), however, the small but important risk of infection being present and red flags to watch out for were discussed with him as well as importance of follow up and seeking help in case of any change in condition. Please follow up for resolution of fevers and his culture results. Due to some degree of urinary retention he started on Flomax, which also may help in case he has underlying hypertension. Consider assessment with PSA. Follow up for resolution of microscopic hematuria. Weightbearing instructions as below. Follow up with orthopedics in office. See full notes and studies for details. Reach out any time in case of questions. Physical Exam Const: COMMON NORMALS: no acute distress and patient oriented x3 HENMT: COMMON NORMALS: oropharynx normal Neck/C-Spine: COMMON NORMALS: no JVD Resp: COMMON NORMALS: normal respiratory effort and clear to auscultation bilaterally AUSCULTATION: clear to auscultation bilaterally Cardio: COMMON NORMALS: no JVD, regular rhythm, S1 normal heart sound present, S2 normal heart sound present and No murmurs present (Cardio) RHYTHM: regular rhythm HEART SOUNDS: S1 normal heart sound present and S2 normal heart sound present GI: COMMON NORMALS: Normal to inspection, nondistended, normoactive bowel sounds present, Soft to palpation and non-tender PALPATION: Yes Soft to palpation Extremity: COMMON NORMALS: no joint enlargement and no pedal edema OTHER: Right thigh/hip looks good. Right knee swollen, less tender to palpation, painful on passive range of motion. No erythema and not warmer compared to L side. Neuro: COMMON NORMALS: patient oriented x3 and moves all extremities Skin: COMMON NORMALS: no rashes or lesions noted GENERAL SKIN EXAM: no rashes or lesions noted Discharge Data Data Completed and Pending: Completed Studies During Hospitalization Category Date Time Status CT kidney stone [id number] Routine Cat Scan 08/04/20 08:00 Completed XR chest 1V shaka ble [id number] Stat Exams 08/02/20 16:17 Completed XR hip RT 2-3V wo /w pel* [id number] Rout ine Exams 08/03/20 Completed XR hip RT 2-3V wo /w pel* [id number] Stat Exams 08/02/20 15:53 Completed XR knee RT 3V* [id number] Routine Exams 08/04/20 19:54 [place] [id number] Routin e Ultrasound 08/03/20 11:59 Completed Pending at discharge Category Date Time Status Blood Culture Sta t Lab 08/03/20 13:00 Results Blood Culture Sta t Lab 08/03/20 19:17 Results Complete Blood Co unt w/Auto AM LABS Lab 08/06/20 04:00 Ordered Comprehensive Met abolic Panel AM LA BS Lab 08/06/20 04:00 Ordered Urine Culture Rou omari Lab 08/03/20 19:13 Results Labs from last 24 hours 08/05/20 08/05/20 06:17 06:17 WBC 8.5 RBC 5.06 Hgb 14.7 Hct 44.1 MCV 87.2 MCH 29.1 MCHC 33.3 RDW 13.4 Plt Count 151 MPV 10.0 Neut % (Auto) 82.3 Lymph % (Auto) 6.6 [place] % (Auto) 7.9 Eos % (Auto) 2.6 Baso % (Auto) 0.4 Neut # (Auto) 6.98 Lymph # (Auto) 0.6 L [place] # (Auto) 0.7 Eos # (Auto) 0.2 Baso # (Auto) 0.0 Nucleated RBC % (a uto) 0 Nucleated RBCs # 0.0 Sodium 130 L Potassium 3.9 Chloride 96 L Carbon Dioxide 26 Anion Gap 11.9 BUN 15 Creatinine 0.9 GFR Calculation Not Reportable Glucose 116 H Calculated Osmolal ity 272 L Uric Acid 3.4 Calcium 8.1 L Total Bilirubin 0.8 AST 23 ALT 12 Alkaline Phosphata se 55 Total Protein 6.7 Albumin 3.5 Globulin 3.2 Vitals: Last Vital Signs Temp 99.0 F 08/05/20 11:43 Pulse 92 08/05/20 11:43 Resp 18 08/05/20 11:43 BP 151/69 08/05/20 11:43 Pulse Ox 96 08/05/20 11:43 Discharge Plan Discharge Patient Disposition: Home Condition: Stable Prescriptions: New oxycodone 5 mg Tablet 5 mg PO Q4H PRN (Reason: Moderate Pain) 7 Days Qty: 30 RF: 0 tamsulosin 0.4 mg Capsule 0.4 mg PO BEDTIME Qty: 30 RF: 0 aspirin 325 mg Tablet,Delayed Release (Dr/Ec) 325 mg PO DAILY Qty: 10 RF: 0 Continued Tylenol 325 mg Tablet 325 mg PO QID PRN (Reason: PAIN/HEADACHE) RF: 0 Held aspirin 325 mg Tablet 325 - 650 mg PO Q6H PRN (Reason: PAIN/HEADACHE) RF: 0 Hold Instructions: Resume on 08/15/20. Discharge Orders: Discharge Order (Routine); Ordered 08/05/20 Ordered By: Kevin Cazares Referrals: [facility], [Staff Physician] - 4-7 days (Available provider to establish care - low grade fever, HTN, BPH, R knee pain/effusion, S/p R hip Fx repair Please call [facility] to set up an appointment to establish care.) Devante Marley MD [Physician] - 1 month ([facility] [place] call you on Friday to set up an appointment.) Discharge Diet: Advance as tolerated Discharge Activity: Limit activity as instructed Patient Instructions: Aspirin (By mouth), Tamsulosin (By mouth), Oxycodone, Slow Release (By mouth), Fever - Adult, Hypertension (GEN), Fall Prevention (GEN) Activity Restrictions/Additional Instructions: 50% weightbearing right lower extremity. Use walker or crutches May DC dressing in 72 hours and shower Please discuss with your primary care doctor regarding follow-up of low-grade fever seen in the hospital, with so far no good identified source. If you experience any recurrence of fevers which persist, high-grade fevers, any new concerning symptoms or worsening of pain, any other concerning symptoms including worsening swelling or pain in the joint. Any redness. Please seek medical attention without delay due to lower chance that there may be an unidentified infection which may spread and cause severe illness, disability or . Please discuss with your primary doctor and on follow-up with orthopedic doctor regarding right knee pain, fluid effusion. Please monitor your blood pressure twice daily at home, write down values to bring to your appointment. Please discuss with your primary care doctor regarding elevated blood pressure seen in the hospital, have them reassess your blood pressures after you are recovering from surgery and pain is resolving since you may have underlying hypertension which may require treatment, and otherwise may expose you to risk of cardiovascular disease, including stroke, heart attack, chronic kidney disease, eye disease, and other complications. Please discuss with your primary care doctor to reassess microscopic hematuria (small amount of blood in your urine) to make sure it is resolved. Please discuss with your primary care doctor regarding follow-up of enlarged prostate. Discharge Attestations Time Spent in Discharge Care*: greater than 30 min Quality Metrics Clinical Quality Measures During this hospital stay, did patient experience: None Coding Level of Care Code Acute Chg FW DC note Diagnoses Fever R50.9 Elevated blood pressure reading R03.0 BPH (benign prostatic hyperplasia) N40.0 Subcapital fracture of right hip S72.011A
[2020-08-05 14:31] VITALS: BP 151/69; PULSE 92; RESP 18; TEMP 37.2; O2SAT 96
--- NOTE | 2020-08-05 14:31 | PC.NURSE ---
Patient discharged at this time, in stable condition. Discharged in the care of his . Discharge instruction given to patient and all questions answered.
== END 2020-08-05 14:32 | disposition home or self-care (01) | DRG 482 ==
LOC: ER 16:44 → MEDSURG 16:51
PROVIDERS: Orthopaedic Surgery; Admitting Provider Internal Medicine; Emergency Provider Family Medicine; PCP Family Medicine; Visit Provider Internal Medicine
PROC: 0QS634Z Reposition Right Upper Femur with Internal Fixation Device, Percutaneous Approach (ICD-10-PCS; CPT 27236; principal; 2020-08-03 15:05)
DX: S72.011A Unspecified intracapsular fracture of right femur, initial encounter for closed fracture (principal); W01.0XXA Fall on same level from slipping, tripping and stumbling without subsequent striking against object, initial encounter; Y92.007 Garden or yard of unspecified non-institutional (private) residence as the place of occurrence of the external cause; Z79.82 Long term (current) use of aspirin; Z96.652 Presence of left artificial knee joint; Z20.822 Contact with and (suspected) exposure to COVID-19; R03.0 Elevated blood-pressure reading, without diagnosis of hypertension; R50.9 Fever, unspecified; R31.29 Other microscopic hematuria; N40.0 Benign prostatic hyperplasia without lower urinary tract symptoms; M17.11 Unilateral primary osteoarthritis, right knee; M25.461 Effusion, right knee; Z53.29 Procedure and treatment not carried out because of patient's decision for other reasons
CPT/HCPCS: 36415; 71045; 73502; 73562; 74176; 76000; 80048; 80053; 81001; 83605; 83880; 84550; 85025; 85610; 85730; 87040; 87086; 87635; 93005; 93970; 96365; 96372; 96374; 96375; 97116; 97161; 97165; 97530; 99285; C1713; J0690; J1100; J1170; J1644; J2270; J2370; J2405; J2704; J3010; J3490; J7030; Q0162

== ENCOUNTER → 2020-09-13 07:56 | Outpatient (BNVA) | payer MEDICARE, OTHER, SELFPAY | PROVIDERS: PCP Family Medicine; Visit Provider Orthopaedic Surgery | DX: Z48.89 Encounter for other specified surgical aftercare (principal); S72.011D Unspecified intracapsular fracture of right femur, subsequent encounter for closed fracture with routine healing | CPT/HCPCS: 73502 ==

== ENCOUNTER → 2023-01-08 09:04 | Outpatient (BNVA) | payer MEDICARE, OTHER, SELFPAY | PROVIDERS: PCP Clinical Nurse Specialist Adult Health; Visit Provider Clinical Nurse Specialist Adult Health | DX: I10 Essential (primary) hypertension (principal); J01.40 Acute pansinusitis, unspecified | CPT/HCPCS: 80053; 80061; 85025 ==

== ENCOUNTER → 2025-01-27 16:14 | Outpatient (BNVA) | payer MEDICARE, OTHER, SELFPAY | PROVIDERS: PCP Family Medicine; Visit Provider Family Medicine | DX: I10 Essential (primary) hypertension (principal); R42 Dizziness and giddiness; R55 Syncope and collapse | CPT/HCPCS: 80053; 84439; 84443; 84484; 85025 ==

== ENCOUNTER 2025-02-02 12:06 | Outpatient (CLI) | payer MEDICARE, OTHER, SELFPAY ==
--- NOTE | 2025-02-02 12:30 | CT_ITS ---
WS: [id number] CT PARANASAL SINUSES HISTORY: L eustachian tube dysfunction X 6 months TECHNIQUE: Contiguous 2.5 mm axial images obtained through the sinuses. Images are reconstructed in sagittal and coronal planes. All CT scans at [facility] use at least one of these dose optimization techniques: automated exposure control; mA and/or kV adjustment per patient size (includes targeted exams where dose is matched to clinical indication); or iterative reconstruction. DLP: 345.08 mGy.cm COMPARISON: None available. Frontal sinuses: Poorly pneumatized frontal sinuses. Mild pneumatization of the LEFT frontal sinus. No significant pneumatization of the RIGHT. Sphenoid sinus: Mild mucoperiosteal thickening and frothy secretions. No air- fluid levels. Ethmoid sinuses: Moderate bilateral mucoperiosteal thickening. Increased soft tissue opacification in both the anterior and posterior ethmoid air cells. Maxillary sinus: Mild mucoperiosteal thickening. Ostiomeatal unit: Bilateral ostiomeatal unit obstruction. Reidentified is enlargement of the sella turcica. Pituitary MRI with and without contrast has been recommended on the prior exam. Orbits and globes are negative. No significant spurring of the nasal septum. Very slight deviation to the LEFT. CT/CT sinus wo con* [id number] IMPRESSION: 1. Complete soft tissue obstruction of the ostiomeatal units, bilateral. 2. Limited pneumatization of the frontal sinuses. 3. Mild mucoperiosteal thickening in the sphenoid sinuses and maxillary sinuse s. 4. Moderate mucoperiosteal thickening in the ethmoid air cells.
--- NOTE | 2025-02-02 12:30 | CT_ITS ---
WS: [id number] CT HEAD NONCONTRAST HISTORY: sudden vertigo and pre-syncope over weekend; r/o CVA TECHNIQUE: Contiguous axial imaging performed through the brain. Bone and soft tissue windows. Sagittal and coronal reformats reviewed. All CT scans at [facility] use at least one of these dose optimization techniques: automated exposure control; mA and/or kV adjustment per patient size (includes targeted exams where dose is matched to clinical indication); or iterative reconstruction. DLP: 1043.68 mGy.cm COMPARISON: None available. No acute intracranial hemorrhage, midline shift or mass effect. Mild symmetric cerebral atrophy and mild small vessel disease. No acute or subacute or chronic infarct is identified. Mild cerebellar atrophy. Ventricles: Normal size with no hydrocephalus. The sella turcica seen best on the lateral projection appears enlarged with mild bony thinning and possible erosions. No significant soft tissue extension above the sella turcica. Paranasal sinuses: Mild mucoperiosteal thickening in the ethmoid and sphenoid sinuses. No air-fluid levels. Mastoid air cells: Well pneumatized. Calvarium and scalp: Skull is intact with no soft tissue edema or swelling. Dense intracranial carotid artery calcifications. CT/CT head wo con* [id number] IMPRESSION: 1. No acute intracranial hemorrhage or edema. 2. Mild cerebral and cerebellar atrophy. No prior infarct. 3. Enlarged sella turcica with mild thinning of the posterior wall. No soft ti ssue extending up above the sella turcica. Recommend MRI pituitary gland with a nd without contrast.
== END 2025-02-02 12:07 | disposition home or self-care (01) ==
PROVIDERS: PCP Family Medicine; Visit Provider Family Medicine
DX: R42 Dizziness and giddiness (principal); H69.92 Unspecified Eustachian tube disorder, left ear; R55 Syncope and collapse; J34.89 Other specified disorders of nose and nasal sinuses; J01.10 Acute frontal sinusitis, unspecified; J01.31 Acute recurrent sphenoidal sinusitis; J01.01 Acute recurrent maxillary sinusitis
CPT/HCPCS: 70450; 70486

== ENCOUNTER 2025-02-18 06:38 | Outpatient (CLI) | payer MEDICARE, OTHER, SELFPAY ==
--- NOTE | 2025-02-18 07:15 | MR_ITS ---
WS: [id number] MRI HEAD WITHOUT AND WITH CONTRAST with pituitary protocol TECHNIQUE: Sagittal T1, T2 axial, T2 axial FLAIR, axial susceptibility weighted imaging, axial diffusion weighted images, and coronal T2 images were obtained. Pre and post-T1 axial and post T1 coronal images. ADC and FSPGR images. CLINICAL INFORMATION: abnormal head CT showing enlarged sella turcica COMPARISON: CT 02/02/2025 FINDINGS: Heterogeneously enhancing intrasellar lesion with suprasellar extension and most compatible with pituitary macroadenoma. Mild LEFT to RIGHT deviation of the infundibulum. Normal optic chiasm. Enhancing tissue measures approximately 1.0 x 1.9 x 1.9 cm AP by transverse by craniocaudal. Associated remodeling of the bony sella. Slight involvement of the RIGHT greater than LEFT cavernous sinus. Cavernous carotid arteries are patent. No evidence of restricted diffusion to suggest acute ischemia. Ventricular system and basilar cisterns are patent. Moderate small vessel changes. Moderate parenchymal volume loss. Normal vascular flow voids at the skull base. No extra- axial fluid collections. Mild mucosal thickening in the paranasal sinuses. Mild mucosal thickening in the LEFT greater than RIGHT mastoid air cells. No hemosiderin on the susceptibly weighted images. MR/MR pituitary wo/w con* [id number] IMPRESSION: Enhancing sellar and suprasellar mass described above most compatible with macr oadenoma. Recommend neurosurgical consultation.
[2025-02-18] MEDS: gadobenate dimeglumine 20 mL vial IV (07:57)
--- NOTE | 2025-02-18 08:45 | USCV_ITS ---
King Carlo Age: 79 Gender: M : 1945 Exam Date: 02/18/2025 08:33 Ordering Phys: Claudia Cross MD Technologist: RACHELLE Exam Location: [facility] [place] Indication: stenosis Risk Factors: Previous Vascular Surgery: Right Brachial BP: / Left Brachial BP: / Right Left Velocity (cm/s) Spectral Plaque Velocity (cm/s) Spectral Plaque Syst/Diast Broadening Syst/Diast Broadening 61.10/ 5.80 Prox CCA 69.50 / 10.70 50.50/ 9.60 Mid CCA 78.20 / 19.40 57.70/ 11.20 Distal CCA 55.60 / 13.00 32.60/ 7.30 Prox ICA 28.00 / 8.60 42.60/ 13.90 Mid ICA 51.70 / 13.70 42.40/ 12.10 Distal ICA 43.70 / 14.50 58.30 ECA 70.90 0.60 ICA/CCA 0.50 Antegrade Vertebral Antegrade 26.90/ 5.80 cm/s 19.80/ 3.80 cm/s Tri Subclavian Bi 69.50 88.40 FINDINGS Comparison: none available. No significant elevation of systolic or diastolic velocities. Waveforms are normal. Minimal bilateral, plaque in the bifurcations with no elevation of velocity. CONCLUSIONS Bilateral ICA stenosis less than 50%. Minimal carotid atherosclerosis. Dr. Rubia Neri DO (Electronically Signed) Final Date: 18 February 2025 11:56 S
== END 2025-02-18 06:39 | disposition home or self-care (01) ==
LOC: RAD 06:39
PROVIDERS: PCP Family Medicine; Visit Provider Family Medicine
DX: E23.6 Other disorders of pituitary gland (principal); I65.23 Occlusion and stenosis of bilateral carotid arteries; J34.89 Other specified disorders of nose and nasal sinuses; I67.82 Cerebral ischemia; G31.89 Other specified degenerative diseases of nervous system
CPT/HCPCS: 70553; 93880

== ENCOUNTER → 2025-02-21 09:59 | Outpatient (BNVA) | payer MEDICARE, OTHER, SELFPAY | PROVIDERS: PCP Family Medicine; Visit Provider Family Medicine | DX: D35.2 Benign neoplasm of pituitary gland (principal) | CPT/HCPCS: 82533; 83001; 83002; 84146; 84402; 84403 ==